=== PATIENT | female | born 1970 | race Caucasian/White ===

== ENCOUNTER 2016-08-13 08:48 | Outpatient (CLI) | payer MEDICAID | END 2016-08-13 11:22 | LOC: D.MAMMO 08:48 | DX: Z12.31 Encounter for screening mammogram for malignant neoplasm of breast (principal) ==

== ENCOUNTER → 2016-09-17 13:17 | Outpatient (CLI) | payer MEDICAID | END | disposition home or self-care (01) | LOC: D.MAMMO 09:00 | DX: R92.8 Other abnormal and inconclusive findings on diagnostic imaging of breast (principal) ==

== ENCOUNTER → 2017-10-26 18:07 | Outpatient (CLI) | payer MEDICAID | END | disposition home or self-care (01) | LOC: D.MAMMO 09:45 | DX: Z12.31 Encounter for screening mammogram for malignant neoplasm of breast (principal) ==

== ENCOUNTER 2018-10-27 09:00 | Outpatient (CLI) | payer MEDICAID | END 2018-10-27 10:00 | disposition home or self-care (01) | LOC: D.MAMMO 09:00 | PROVIDERS: ATTEND Family Medicine Adult Medicine | DX: N64.4 Mastodynia (principal) ==

== ENCOUNTER 2019-01-04 05:00 | Day surgery (SDC) | payer MEDICAID ==
[2019-01-02 12:39] LABS: CALC OSMOLALITY 284 mosm/kg (275-300); CALCIUM 8.6 mg/dL (8.5-10.1); CARBON DIOXIDE 24.2 mmol/L (21.0-32.0); CHLORIDE - SERUM 108 mmol/L (98-107); CREATININE - SERUM 0.7 mg/dL (0.6-1.3); GLUCOSE 93 mg/dL (74-106); POTASSIUM - SERUM 4.1 mmol/L (3.5-5.1); SODIUM 143 mmol/L (136-145); UREA NITROGEN 12 mg/dL (7-18); eGFR NON AFRICAN AMERICAN > 90 mL/min (90-120)
[2019-01-02 12:42] LABS: BASOPHILS 0.4 % (0-2); EOSINOPHILS 2.1 % (0-7); HEMATOCRIT 40.3 % (36.0-48.0); HEMOGLOBIN 13.4 g/dL (12-16); IMMATURE GRANULOCYTES 0.2 % (0-5); LYMPHOCYTES 24.1 % (15-50); MCH 30.2 pg (26.0-34.0); MCHC 33.3 g/dL (31.0-37.0); MEAN PLATELET VOLUME 11.9 fL (7.4-10.4); MONOCYTES 7.1 % (2-11); NEUTROPHILS 66.1 % (40-80); PLATELET COUNT 214 10x3/uL (130-400); RBC 4.43 10x6/uL (4.00-5.40); RDW 13.2 % (11.5-14.5)
[~2019-01-04] VITALS: Ht 162.6 cm; Wt 86.2 kg
[~2019-01-04 05:00] MED LIST: IBUPROFEN800 MG PO; LISINOPRIL20 MG PO; NORVASC10 MG PO; PEPCID AC20 MG PO
[2019-01-04 05:50] VITALS: BP 114/66; Ht 162.6 cm; Wt 86.2 kg
[2019-01-04 06:10] LABS: HCG URINE NEGATIVE (NEGATIVE)
--- NOTE | 2019-01-04 09:30 | NUR ---
RECEIVED BY BED FROM RECOVERY ROOM, BEDSIDE REPORT COMPLETED AND VS VERIFIED. PT IS AWAKE AND ALERT X 3, RATES "CRAMPING" AT 4/10. ABDOMEN SOFT TO TOUCH, 3 LAB INSCISION NOTED TO BE CLEAN AND DRY WITH DERMABOND AND NO DRESSING. RANDOLPH CATH TO BEDSIDE DRAIN WITH 100ML CLEAR URINE NOTED. IV TO LEFT WRIST WITH LR INFUSING PER ORDER, NO REDNESS OR COMPLAINT OF TENDERNESS AT IV SITE. SCD BILAT ON PUMP, PT DENIES NAUSEA AT THIS TIME. SIDE RAILS UP X 2 WITH CALL LIGHT IN REACH.
[2019-01-04 10:22] VITALS: BP 109/59
--- NOTE | 2019-01-04 10:49 | NUR ---
LARGE ICE WATER AND CRANBERRY JUICE PER REQUEST. CONTINUE TO RATE CRAMPING AT 5/10 BUT DENIES PAIN MEDICATION WHEN OFFERED, UNDERSTANDS TO CALL WHEN SHE IS READY. SPOUSE AT BEDSIDE, SIDE RAILS UP X 2 AND CALL LIGHT IN REACH.
--- NOTE | 2019-01-04 11:15 | NUR ---
CONTINUE TO RATE PAIN/CRAMPING AT 5/10 AND DENIES NEED FOR PAIN MED AT THIS TIME. SPOUSE AT BEDSIDE. CALL LIGHT IN REACH.
--- NOTE | 2019-01-04 12:30 | NUR ---
PT SITTING UP IN BED EATING CLEAR LIQUID DIET. ADDITIONAL JELLO PROVIDED PER HER REQUEST. RATES CRAMPING AT 3/10. RANDOLPH CATH WITH 250ML CLEAR URINE TO COLLECTION CANISTER.
--- NOTE | 2019-01-04 13:00 | NUR ---
PT RATES PAIN AT 7/10 AND REQUEST PAIN MED. SHE ALSO ASK FOR PHENERGAN IF IT HAS BEEN ORDERED DUE TO HX OF GETTING SICK AFTER TAKING ANY NARCOTIC. MORPHINE 2MG WITH PHENERGAN 25MG DILUTED IN 8ML NS GIVEN SLOWLY OVER 5MINUTES. PRIOR TO IVPUSH GIVEN SITE FLUSHED EASILY WITH 5ML NS. PT DENIES PAIN OR BURNING AT SITE. 300ML NOTED TO RANDOLPH COLLECTION CANISTER. SIDE RAILS UP X 2 WITH CALL LIGHT IN REACH.
--- NOTE | 2019-01-04 14:15 | NUR ---
PT RESTING WITH EYES CLOSED AND RESP EVEN, LEFT UNDISTURBED WITH NO SIGNS OF DISTRESS. SPOUSE AT BEDSIDE.
--- NOTE | 2019-01-04 15:00 | NUR ---
CALLED TO ROOM, PT RATES PAIN AT 2/10 AND REQUEST THAT RANDOLPH BE REMOVED, EXPLAINS SHE IS READY TO GET UP AND WALK. IV SALINE LOCKED. RANDOLPH CATH REMOVED WITH TOTAL OF 1200ML OUTPUT. SHE IS ABLE TO MOVE HERSELF TO SITTING UP ON SIDE OF BED WITHOUT COMPLAINT OF NAUSEA OR DIZZINESS. WALKS TO BATHROOM BY HERSELF AND ABLE TO VOID 200ML WITHOUT COMPLAINT. PROVIDED WITH MESH BRIEFS AND TAWANDA PAD AND ALLOWED TO DRESS IN HER OWN CLOTHING. AMB IN HALLS TO VIEWING WINDOW AT NURSERY AND BACK TO ROOM.
--- NOTE | 2019-01-04 15:55 | NUR ---
DENIES NEEDS AT THIS TIME, VISITING WITH FAMILY.
--- NOTE | 2019-01-04 16:00 | NUR ---
DR TAVERAS NOTIFIED WITH REPORT GIVEN OF PT VOIDING, WALKING AND REQUEST TO D/C HOME. MD TO ROUND AFTER CLINIC HOURS.
--- NOTE | 2019-01-04 16:45 | NUR ---
DR TAVERAS TO PT ROOM. DISCHARGE ORDER RECEIVED AND WRITTEN SCRIPTS PLACED ON CHART. VERBAL ORDER TO GIVEN PERCOCET X 1 NOW PRIOR TO PT D/C.
--- NOTE | 2019-01-04 17:00 | NUR ---
REGULAR DIET TAKEN TO ROOM. SALINE LOCK FROM LEFT WRIST REMOVED WITH CATH INTACT.
[2019-01-04] MEDS ORDERED: PERCOCET 5-3251 TAB PO (17:23)
[2019-01-04] MEDS ORDERED: PHENERGAN25 M1 PO (17:24)
--- NOTE | 2019-01-04 17:30 | NUR ---
VERBAL AND WRITTEN DISCHARGE INSTRUCTIONS GONE OVER WITH PATIENT. SHE DENIES QUESTIONS OR CONCERNS, ALREADY HAS FOLLOW UP APPOINTMENT WITH DR TAVERAS IN 2 WEEKS. TAKEN OUT TO CAR BY WHEELCHAIR HOME WITH SPOUSE.
--- NOTE | 2019-01-13 12:26 | OP ---
PATIENT NAME: CHANI RO MEDICAL RECORD: [id number] :70 LOCATION:[facility] ADMISSION DATE: SURGEON: MATTEO TAVERAS DO DATE OF OPERATION: 01/04/2019 PREOPERATIVE DIAGNOSIS: Symptomatic fibroid uterus. POSTOPERATIVE DIAGNOSIS: Symptomatic fibroid uterus. PRIMARY SURGEON: Matteo Taveras DO SANDER HAND SURGEON: Jaylen Allen MD ANESTHESIA: Marc Murphy CRNA PROCEDURE: Total laparoscopic hysterectomy, bilateral salpingectomy. FINDINGS: Normal appearing external genitalia, normal appearing vaginal vault, normal appearing cervix. Uterus sounded to 8 cm. Normal appearing uterus, bilateral fallopian tubes and bilateral ovaries. SPECIMENS: Uterus, cervix, and bilateral fallopian tubes. ESTIMATED BLOOD LOSS: 50 cc. IV FLUIDS: 1200 cc. URINE OUTPUT: 500 cc of clear urine. COMPLICATIONS: None. CONDITION: Stable. DESCRIPTION OF PROCEDURE: The risks, benefits, alternatives and indications of the procedure were discussed with the patient. She voiced understanding of the procedure and signed the consent. She was taken to the OR where general anesthesia was administered and found to be adequate. She was placed in the dorsal lithotomy position. She was prepped and draped in normal sterile fashion. Urinary catheter was placed in the bladder. A speculum was placed in the posterior aspect of the vagina and a single tooth tenaculum was used to grasp the anterior lip of the cervix. The cervix was sounded to 8 cm. The cervix was further dilated to accommodate the uterine manipulator. The VCare uterine manipulator was placed with the cup firmly against the cervix and the balloon was inflated. All other instruments were removed from the vagina and attention was then turned to the abdomen. Gloves were changed. The Marcaine was used in the umbilical fold and a 5-mm incision was placed in the umbilical fold and a 5-mm port was placed under direct laparoscopic visualization. Pneumoperitoneum was achieved to 15 mmHg. A left lower quadrant and right lower quadrant 5-mm port was placed 2 cm superior and 2 cm medial to the right and left ASIS under direct laparoscopic visualization. The patient was placed in Trendelenburg position and the uterus was elevated out of the pelvis. The right fallopian tube was grasped with the grasper and was removed using the Thunderbeat device. The round ligament was coagulated and cut. A bladder flap was created with the Thunderbeat device. The uterine vessels were identified along the uterus and the Thunderbeat device was used to coagulate and cut the OPERATIVE REPORT [id number] CHANI RO uterine vessels on that side. The entire procedure was then repeated on the left side. The VCare uterine manipulator was pushed into the pelvis and the cervicovaginal junction was delineated. The colpotomy was achieved with the Thunderbeat device and was extended circumferentially around the cervicovaginal junction along the colpotomy ring. The uterus and tubes were then removed through the vagina. Good hemostasis was noted at the cervical vaginal junction as well as at the uteroovarian and round ligament pedicles. Attention was then turned to the vagina and the vaginal cuff was closed with interrupted stitches of 0 Vicryl with attention to reapproximating the vagina with the uterosacral ligaments for support. Good hemostasis was noted. Gloves were changed and attention was then turned to the abdomen. The camera was placed back into the abdomen and the abdomen was irrigated with warm sterile water and good hemostasis was noted. All instruments were removed from the abdomen and vagina and pneumoperitoneum was released. The port sites were closed with 3-0 Monocryl and Dermabond, covering with good hemostasis. The patient tolerated the procedure well. All instrument, needle, sponge counts were correct times 2. She was awakened and taken to the recovery room in stable condition. TRANSINT:[id number] Voice Confirmation ID: [id number] DOCUMENT ID: [id number] MATTEO TAVERAS DO at 1226 CC: [id number] DICTATION DATE: 01/05/19 1143 [employer] TECHNICIAN: 01/05/[address] [facility] 01/04/19 [id number] [place] [address]
== END 2019-01-04 17:30 | disposition home or self-care (01) ==
LOC: D.OPS 05:00 → D.PAN 07:30 → D.OPS 07:30 → D.LD 09:54 → D.OPS 17:30
PROVIDERS: ATTEND Student in an Organized Health Care Education/Training Program
DX: D25.9 Leiomyoma of uterus, unspecified (principal)